=== PATIENT | female | born 1945 | race Caucasian/White ===

== ENCOUNTER → 2018-02-21 | Outpatient (CLI) | payer MEDICARE ==
--- NOTE | 2018-02-21 17:15 | PN ---
PROGRESS NOTE 70-year-old female patient diagnosed having obstructive sleep apnea back in based on a sleep study in 2009. The patient is currently utilizing a CPAP at a pressure of 13 cm of water. I saw this patient in followup in June of 2017 and back then she was not ready to update her CPAP machine. Today she is coming in with the same requested. She wants the new CPAP machine. She has already contacted his insurance and her DME and she has gotten approval. Her weight has been stable. She is very much compliant with CPAP therapy. She wears it every night. She goes to bed around 10:00 pm, wakes up 6:00 am in the morning. Averaging around 7-8 hours of sleep without any major difficulties. She was using the Arroyo LT nose pillow. Upon further inquiry she is interested in updating her nasal pillows and I have suggested the AirFit P10 which worked very well for this patient. No other complaints otherwise for now. PAST MEDICAL HISTORY: Obstructive sleep apnea. Obesity, hypertension, hyperlipidemia, periodic limb movements and degenerative arthritis. REVIEW OF SYSTEMS: A 12-point review of system was done. She had 20 pounds of weight gain since her diagnosis of obstructive sleep apnea. She has chronic nasal rhinitis which is likely allergic in nature. No cough or sputum production, chest tightness or wheezing. No angina. No palpitations. No nausea, vomiting or diarrhea. No dysuria, frequency or urgency. She has chronic arthritic pain in lower extremities bilaterally. No skin rashes. No neurological deficits. PHYSICAL EXAMINATION: BP is 148/74, pulse 66, respirations 16, temperature 96.9, saturation 97% on room air. Weight is 287. Height is 5 feet 3 inches. GENERAL APPEARANCE: Calm, comfortable. Head is atraumatic, normocephalic. NECK: Short, supple, crowding of the posterior pharynx with no goiter or neck masses. LUNGS: Diminished breath sounds. Otherwise clear. HEART: Sounds are regular. Normal S1, S2. No S3. No murmurs. ABDOMEN: Soft, nontender. No organomegaly. EXTREMITIES: No edema. No cyanosis or clubbing. NEUROLOGIC: The patient is alert and oriented x3. There is no focal neurological deficits. PSYCHIATRIC: Negative for anxiety or depression. SKIN: Negative for any wounds or ulceration. IMPRESSION: 1. Severe symptomatic obstructive sleep apnea. The patient is currently on CPAP pressure of 13. The patient wanted to update her CPAP machine. 2. Morbid obesity. 3. Hypersomnia, improved with CPAP therapy. 4. Hyperlipidemia. 5. Hypertension. 6. Chronic allergic rhinitis. 7. Hypothyroidism. 8. Osteoarthritis. PLAN: 1. Will give out a prescription for APAP with minimum pressure of 5 and maximum pressure of 20. 2. Will put the patient on AirFit P10 small size nose pillows. 3. Encourage weight loss. 4. See me back in 30 to 90 days to assess clinical response and compliance. 5. The prescription will be sent out to [facility]. FARHAD / ADRIAN: [id number] /
== END | disposition home or self-care (01) ==
LOC: SLEEP 15:56
PROVIDERS: ATTEND Internal Medicine Critical Care Medicine
DX: Z53.9 Procedure and treatment not carried out, unspecified reason (principal)

== ENCOUNTER → 2018-05-23 | Outpatient (CLI) | payer MEDICARE ==
--- NOTE | 2018-05-23 22:00 | PN ---
PROGRESS NOTE This 73-year-old female patient was diagnosed having obstructive sleep apnea. The patient was given an APAP at a pressure of 15 cm of water and today she is coming in for a compliancy check. The patient utilizing an AirFit P10 nose mask. Things are looking good. She is benefitting from treatment. Her sleep quality is improved. Her sleeping patterns improved significantly and the patient has been averaging around 6.8 hours of CPAP use per night. Her leak factor is only 31 L/minute and her AHI while on treatment is down to 0.9. Her CPAP use for more than 4 hours is 29/30, which is essentially above 90%. Treatment has been successful and there have been no other significant issues for now. Her [place] score is down to 7. VITALS: BP is 124/58, pulse 69, respirations 16. [place] score is 7. Temperature 92. Weight is 289. GENERAL APPEARANCE: Calm, comfortable. Head is atraumatic, normocephalic. Neck is supple. Crowding of posterior pharynx, Mallampati class IV. There is no goiter or neck masses. LUNGS: Clear to auscultation. HEART: Sounds regular rate and rhythm. Normal S1, S2. No S3, S4. No murmurs. ABDOMEN: Soft, nontender. No organomegaly. EXTREMITIES: No edema. No cyanosis or clubbing. IMPRESSION: 1. Severe obstructive sleep apnea currently on CPAP at a pressure of 13 with excellent clinical response and compliance. 2. Obesity with a current weight of 287. 3. Hypersomnia. 4. Hyperlipidemia. 5. Hypertension. 6. Chronic allergic rhinitis. 7. Hypothyroidism. 8. Osteoarthritis. PLAN: 1. Continue treatment. 2. This is a successful treatment with excellent response and compliance. 3. Encourage weight loss. 4. See me back in a year's time, earlier if needed. MMODL / IJN: [id number] /
== END | disposition home or self-care (01) ==
LOC: SLEEP 15:44
PROVIDERS: ATTEND Internal Medicine Critical Care Medicine
DX: G47.33 Obstructive sleep apnea (adult) (pediatric) (principal); E66.9 Obesity, unspecified; E78.5 Hyperlipidemia, unspecified; I10 Essential (primary) hypertension; J30.9 Allergic rhinitis, unspecified; E03.9 Hypothyroidism, unspecified; M19.90 Unspecified osteoarthritis, unspecified site; Z99.89 Dependence on other enabling machines and devices

== ENCOUNTER → 2019-06-26 | Outpatient (CLI) | payer MEDICARE, OTHER ==
--- NOTE | 2019-06-26 18:16 | PN ---
PROGRESS NOTE This is a 74-year-old female patient coming in for an annual check regarding her obstructive sleep apnea. The patient has been on CPAP at a pressure of 13 cm of water and she is using an AirFit P10 nose mask. She has done very well on this current setting and she has no specific complaints. On today's evaluation, I checked her CPAP machine. The patient has been averaging more than 6 hours of CPAP use per night. Her average CPAP is around 6.6 hours with CPAP use for more than 4 hours being above 90%. Her leak is 31 L/minute. AHI is down to 1.4. She has a stable weight at around 290 pounds. No complaints for now. REVIEW OF SYSTEMS: Fourteen-point review of systems was done. Positive findings were all mentioned above in the history of present illness. No altered mentation. No headaches in the morning. No confusion. No change in mental status. No cough or sputum production. No chest tightness or wheezing. No . No hemoptysis. No heartburn. No nausea or vomiting. No flatus. No falls. No head trauma. No anxiety. No depression. No signs of any congestive heart failure. No arrhythmias. No other complaints otherwise for now. PHYSICAL EXAMINATION: VITAL SIGNS: BP is 110/64, pulse 74, respirations 16, temperature 97.2, saturation 97% on room air. Height is 5 feet 3 inches, weight 290, BMI 51.3. GENERAL APPEARANCE: Calm, comfortable, obese. HEAD: Atraumatic, normocephalic. NECK: No JVD. No goiter or neck masses. LUNGS: Clear to auscultation. HEART: Heart sounds are regular rate and rhythm. Normal S1, S2. No S3, S4. No murmurs. ABDOMEN: Soft, nontender. No organomegaly. EXTREMITIES: No edema. No cyanosis or clubbing. NEUROLOGIC: Alert and oriented x3. No focal neurological deficits. PSYCHIATRIC: Negative for anxiety or depression. SKIN: Negative for any wounds or ulceration. IMPRESSION: 1. Obstructive sleep apnea, currently successfully treated with a CPAP pressure of 13 cm of water. 2. Hypersomnia, recovered. 3. Obesity with a body weight of 290. 4. Hyperlipidemia. 5. Hypertension. 6. Chronic allergic rhinitis. 7. Hypothyroidism. PLAN: Proceed with the same CPAP therapy at the same level of pressure. Renew her AirFit P10 nose pillows. Encourage weight loss. Optimize sleep hygiene measures. Will continue to follow. MMODL / IJN: [id number] /
== END | disposition home or self-care (01) ==
LOC: SLEEP 13:19
PROVIDERS: ATTEND Internal Medicine Critical Care Medicine
DX: G47.33 Obstructive sleep apnea (adult) (pediatric) (principal); E66.9 Obesity, unspecified; E78.5 Hyperlipidemia, unspecified; I10 Essential (primary) hypertension; J30.9 Allergic rhinitis, unspecified; E03.9 Hypothyroidism, unspecified; Z99.89 Dependence on other enabling machines and devices